=== PATIENT | female | born 1950 | race Caucasian/White ===

== ENCOUNTER 2016-06-04 05:18 | Observation (INO) | payer OTHER ==
[~2016-06-04] VITALS: Ht 157.5 cm; Wt 79.8 kg
[2016-06-04 05:55] VITALS: BP 152/79; PULSE 82; RESP 16; TEMP 98.4; O2SAT 100
[2016-06-04] MEDS ORDERED: HEPARIN SODIUM - SQ 10,000 UNITS/ML VIAL SQ SCH (06:15)
[2016-06-04] MEDS ORDERED: METOPROLOL TARTRATE 25 MG TAB PO PRN (06:15)
[2016-06-04] MEDS ORDERED: INSULIN HUMAN REGULAR 1,000 UNITS/10 ML VIAL SQ PRN (06:15)
[2016-06-04] MEDS ORDERED: ceFAZolin 1,000 MG/NS 100 ML IV SCH ×2 (06:15)
[2016-06-04] MEDS: LACTATED RINGER'S 1000 ML IV SCH ×2 (06:24→14:23)
[2016-06-04] MEDS ORDERED: LIDOCAINE 1%/EPINEPHrine 1:100,000 SOLN 30 ML VIAL ONE (06:50)
[2016-06-04] MEDS ORDERED: SUGAMMADEX SODIUM 200 MG/2 ML VIAL IV PUSH ONE ×2 (06:54)
[2016-06-04] MEDS ORDERED: ACETAMINOPHEN 1000 MG/100 ML VIAL IV ONE (06:54)
[2016-06-04] MEDS ORDERED: DEXAMETHASONE SOD PHOS 4 MG/ML VIAL ONE (07:14)
[2016-06-04] MEDS: SODIUM CHLORID 0.9% 500 ML IV SCH ×2 (07:30→23:59)
[2016-06-04] MEDS ORDERED: ARTIFICIAL TEARS OPTH OINT 3.5 APPLIC/3.5 GM TUBO ONE (07:38)
[2016-06-04] MEDS ORDERED: SILVER NITR/POTASSIUM NITRATE APPLICATORS TOPICAL ONE (10:24)
[2016-06-04] MEDS ORDERED: ceFAZolin INJ 1,000 MG VIAL IV ONE (10:25)
[2016-06-04] MEDS ORDERED: PHENYLEPH/NS 1000 MCG/10 ML SYR IV ONE (10:41)
[2016-06-04] MEDS ORDERED: PROPOFOL 200 MG/20 ML AMP IV ONE (10:41)
[2016-06-04] MEDS ORDERED: NORMOSOL R INJ 1,000 ML IV ONE (10:41)
[2016-06-04] MEDS ORDERED: ONDANSETRON HCL 4 MG/2 ML VIAL IV PUSH ONE (10:41)
[2016-06-04] MEDS ORDERED: LACTATED RINGER'S 1000 ML INJ 1,000 ML IV ONE (10:41)
[2016-06-04] MEDS: D5-1/2 NS + KCL 20 MEQ INJ 1,000 ML IV SCH ×2 (10:51→21:16)
[2016-06-04] MEDS ORDERED: diphenhydrAMINE HCL 25 MG CAP PO PRN (11:00)
[2016-06-04] MEDS ORDERED: SODIUM CHLORIDE 0.9% FLUSH 5 ML FLUSH FLUSH PRN (11:00)
[2016-06-04] MEDS ORDERED: oxyCODONE/ACETAMINOPHEN 5 MG/325 MG TAB PO PRN (11:00)
[2016-06-04] MEDS ORDERED: ONDANSETRON HCL 4 MG/2 ML VIAL IVP PRN (11:00)
[2016-06-04] MEDS: KETOROLAC TROMETHAMINE 30 MG/ML (IVP) VIAL IVP SCH ×3 (11:00→22:19)
[2016-06-04] MEDS ORDERED: LORazepam 0.5 MG TAB PO PRN (11:00)
[2016-06-04] MEDS ORDERED: MIDAZOLAM HCL 2 MG/2 ML VIAL ONE (11:06)
[2016-06-04] MEDS ORDERED: fentaNYL CITRATE 250 MCG/5 ML AMP ONE (11:06)
[2016-06-04] MEDS ORDERED: MORPHINE SULFATE 4 MG/ML INJ ONE (11:07)
[2016-06-04] MEDS ORDERED: DO NOT ADM ANY ANTICOAGULANT DRUGS XX PRN (11:30)
[2016-06-04] MEDS ORDERED: *MEPERIDINE 25 MG INJ VIAL PERIprocedural Use ONLY ONE (12:07)
--- NOTE | 2016-06-04 12:07 | MP ---
cc: KYM CRUZ KELLY L. MD DATE OF SURGERY 06/04/2016 PREOPERATIVE DIAGNOSES 1. Grade 2 endometrial adenocarcinoma. 2. Postmenopausal bleeding. POSTOPERATIVE DIAGNOSES 1. Grade 2 endometrial adenocarcinoma. 2. Postmenopausal bleeding. PROCEDURE Robotic-assisted laparoscopic hysterectomy, bilateral salpingo-oophorectomy, bilateral pelvic lymphadenectomy. SURGEON MD Jarvis BEHAVIOR INTERVENTIONIST [employer] operator assistant ANESTHESIA General endotracheal anesthesia. ESTIMATED BLOOD LOSS 100 cc. IV FLUIDS 2000 cc. URINE OUTPUT 500 cc. HISTORY A 66-year-old female with postmenopausal bleeding of approximately 7 to 8 weeks duration, sought evaluation, found on imaging to have a thickening in the central uterus. A biopsy was performed which showed a grade 2 endometrial adenocarcinoma. She was counseled regarding treatment options and presents now for surgical evaluation and management. FINDINGS The uterus sounded to 9 cm, was retroverted. It was symmetrically prominent. The tubes and ovaries grossly appeared normal. There was no overtly enlarged pelvic or paraaortic lymph nodes. In the peritoneal cavity there were some subtle adhesions in the right lower quadrant with the descending colon against the left pelvic sidewall, filmy in nature nodes. Otherwise there were no significant adhesions. The liver diaphragm edges were smooth. The omentum grossly appeared normal. Large and small bowel and adjacent mesentery appeared normal. The uterus once removed was evaluated. The tumor arose from the endometrium, was approximately 4 cm in diameter. It did grow into the wall of the uterus at or beyond 50% depth of the myometrium. There was no overt endocervical extension. PROCEDURE The patient was taken to the operating roomm, placed in dorsal lithotomy position. After general endotracheal anesthesia was administered, time-out was undertaken. The patient was identified by sight recognition and hospital ID bracelet and the proposed procedure was reviewed and confirmed. We carefully positioned her in padded Nicholas stirrups. Her arms were padded and secured to the sides. She was further secured to the operating table with eggcrate padding and tape in across chest, over the shoulder fashion. All sites noted to be properly aligned with no malalignments or pressure points. She was prepped in sterile fashion, draped below the waist, placed in high lithotomy position. The cervix was grasped, the uterine cavity sounded, the cervix dilated and a standard V-Care manipulator inserted and secured in the usual fashion. Edmond catheter was placed in the bladder. She was returned to low lithotomy position. Change of sterile gloves was undertaken. We completed draping in anticipation of laparoscopy and confirmed that there was an orogastric airway in the stomach on suction. With manual elevation of the abdominal wall and direct laparoscopic visualization, a 5-mm cannula was placed in the left upper abdomen and an atraumatic entry was confirmed. Carbon dioxide gas was insufflated. Now a 12-mm cannula was placed in midline above the umbilicus, an 8-mm cannula was placed in the right upper quadrant in the left lateral abdomen. The original 5 was exchanged for an 8-mm cannula. She was placed in steep Trendelenburg position. Peritoneal washings were obtained for cytology. The anatomy was explored with the findings as described above. The bowel was folded back on its mesenteric root and three Ray-Apple sponges were placed around the root of the small bowel mesentery. Robotic system was brought into the operative field, attached in the usual fashion. Monopolar scissors, fenestrated bipolar forceps and ProGrasp manipulators were placed in arms #1, 2 and 3 respectively and I took my place at the surgeon's console. The right round ligament was isolated, cauterized, transected. The anterior and posterior leaves of the broad ligament were opened. The right ureter was identified. The right infundibulopelvic ligament was isolated to the level of the pelvic brim. The intervening peritoneum was opened. The infundibulopelvic ligament was cauterized and transected. The posterior peritoneum was opened along the right side of the uterus and cervix and the right vesicouterine peritoneum was dissected off the lower uterine segment and cervix. The right uterine vessels were skeletonized, cauterized and transected as were the cardinal, paracervical and uterosacral ligament. Attention was directed toward the left side. Adhesions were taken down to mobilize the colon to gain access to the left pelvic sidewall. The left round ligament was isolated, cauterized and transected. The anterior and posterior leaves of the broad ligament were opened. The left ureter was identified. The left infundibulopelvic ligament was isolated. The intervening peritoneum was opened. The infundibulopelvic ligament was cauterized and transected. The posterior peritoneum was opened along the left side of the uterus and cervix and the vesicouterine peritoneum was dissected off the left side, completing establishment of the bladder flap. The left uterine vessels were skeletonized, cauterized and transected as were the cardinal, paracervical and uterosacral ligaments. A circumferential colpotomy was performed the cervix from the upper vagina and the specimen was withdrawn transvaginally which included uterus, cervix, tubes and ovaries and a pneumooccluder balloon was placed in the vagina to maintain pneumoperitoneum. Instruments 1 and 3 were exchanged for needle drivers as a 0 Vicryl suture was introduced. The vaginal cuff was closed starting at the left corner, full-thickness tissue closure including the posterior peritoneum and the edge of the uterosacral ligament, tied via instrument tie. The closure was held on counter traction as a running continuous full-thickness closure was carried across the vaginal apex to the contralateral corner where it was similarly fixed, secured tied via instrument tie. The needle was cut and removed. The pelvis was thoroughly irrigated. There was a good margin between the bladder edge and the vaginal cuff suture line. Sites were hemostatic. Pathology came back preliminary evaluation of the uterus showing a large tumor, deep myometrial invasion in conjunction with a preop biopsy showing a grade 2 tumor and, as per our preop discussion with Leisa Gonzales, we agreed to consider at least resecting the vega pelvic lymph nodes if there were multiple risk factors that potentially increased the chance of microscopic metastatic disease beyond the uterus and further dissection would be limited unless there was something obviously abnormal. This was discussed again in the preop holding area today and she agreed with this plan, understood the ramifications of that incision. Because of the risk factors, attention was directed toward the right pelvic lymph nodes where the pararectal, paravesical and obturator spaces were developed. Lymphatic tissue was removed starting at the bifurcation of the iliac vessels on the right, continued distally along the psoas muscle and external iliac artery with care taken to isolate and spare the genitofemoral nerve. Dissection was carried distally to the circumflex iliac vein and the medial border of dissection was the superior vesical artery. The lymphatic tissue was taken down to the obturator nerve and lymphatic tissue ventral to the obturator nerve was removed and this en bloc specimen was placed in the right pelvis for later retrieval. Attention was directed toward the left side where similarly the paravesical, pararectal and obturator spaces were opened. Lymphatic tissue was removed using bipolar cautery and sharp dissection, care taken to spare the genitofemoral nerve, dissect from the bifurcation of the iliacs distally to the circumflex iliac vein, medially to the superior vesical artery, dissecting into the obturator space and removing lymphatics ventral to the obturator nerve and the en bloc specimen was placed in the left pelvis for later retrieval. The pelvis was thoroughly irrigated. Small bleeders were rendered hemostatic with bipolar cautery to assist in continued hemostasis. Hemostatic Tabitha powder was placed in the lymph node dissection beds and across the vaginal cuff. The paraaortic region was inspected. The peritoneal surfaces were again inspected. There were no visible or palpably enlarged lymph nodes in that region. In keeping with our preoperative discussion and our agreement, it was felt that further dissection may be associated with morbidity that exceeded benefit. It was felt that all reasonable surgical objectives had been completed in this individual. The robotic instruments were removed and the robotic system was disengaged from the operative field. I reentered the bedside under sterile condition. The 12-mm cannula was used to retrieve the three Ray-Apple sponges that were in the peritoneal cavity. They were each removed separately and then inspected and noted to be removed in their entirety. The 12-mm cannula was then used to introduce an EndoCatch bag to capture first the right pelvic lymph nodes and then the left pelvic lymph nodes. Inspection confirmed there were no remaining foreign objects in the peritoneal cavity and preliminary counts were correct. The 12-mm fascial defect was closed with 0 Vicryl sutures in an interrupted fashion using a needle fascial closure apparatus. They were tied securely which rendered the fascia completely airtight and hemostatic. The remaining cannulas were withdrawn. Carbon dioxide gas was removed from the peritoneal cavity. 3-0 Vicryl subcutaneous, 3-0 Vicryl subcuticular and Steri-Strips used to close these incisions. She was returned to dorsal lithotomy position. Pelvic exam confirmed the vaginal cuff was well supported, hemostatic. There are no vaginal lacerations. There was, however, some superficial mucosal irritation near the introitus rendered hemostatic with topical coagulant. There were no remaining foreign objects in the vagina. Final counts were correct. She was returned to dorsal supine position pending reversal of anesthesia when I left the operating room to precede her to the Post-Anesthesia Care Unit and speak to a family member who was waiting in the family surgical waiting area. MD PARVIZ Fowler /11:21 AM /11:40 AM
[2016-06-04 14:12] VITALS: BP 140/74; PULSE 88; RESP 18; TEMP 97.2; O2SAT 99
--- NOTE | 2016-06-04 15:14 | PD.ONC.PN ---
Subjective Subjective Remarks Post op note: Pt only c/o left eye irritation/scratch. I explained that this happens sometimes and I will have RN put patch on eye and get her some gtts...usually by morning the symptom is resolved. she denies any N/V or pain still sleepy Objective Data Date Time Temp Pulse Resp B/P Pulse Ox O2 Delivery O2 Flow Rate FiO2 06/04/16 13:50 89 16 151/82 99 Nasal Cannula 2 06/04/16 13:00 97.7 73 15 122/68 99 Nasal Cannula 2 06/04/16 12:30 62 12 119/68 99 Nasal Cannula 2 06/04/16 12:00 97.0 75 12 136/75 98 Nasal Cannula 2 06/04/16 12:00 12 06/04/16 11:45 77 12 139/80 98 Nasal Cannula 2 06/04/16 11:30 82 12 142/77 98 Nasal Cannula 2 06/04/16 11:15 90 12 146/77 97 Nasal Cannula 2 06/04/16 10:59 97.4 102 12 151/81 97 Nasal Cannula 2 06/04/16 05:55 98.4 82 16 152/79 100 06/04/16 06/04/16 06/04/16 07:00 15:00 23:00 Intake Total 2300 ml Output Total 800 ml Balance 1500 ml Laboratory Results Laboratory Tests Test 06/04/16 05:46 Blood Type O POSITIVE Antibody Screen NEGATIVE Blood Bank Comment Administered Medications Medications (Trade) Dose Ordered Sig/Sangita Route PRN Reason Start Time Stop Time Status Last Admin Dose Admin Lactated Ringer's 1,000 ml @ 30 mls/hr Q24H IV 06/04/16 07:30 06/04/16 06:24 Potassium Chloride/Dextrose/ Sod Cl (D5-1/2 NS + KCl 20 Meq Inj) 1,000 ml @ 100 mls/hr Q10H IV 06/04/16 10:51 06/04/16 10:51 Ketorolac Tromethamine (Toradol Inj) 15 mg Q6H IVP 06/04/16 11:00 06/05/16 05:01 06/04/16 11:00 Objective Remarks GENERAL: Well-nourished, well-developed patient. sleepy SKIN: Warm and dry. HEAD: Normocephalic. EYES:mild erythema to left conjunctiva CARDIOVASCULAR: Regular rate and rhythm without murmurs. RESPIRATORY: Breath sounds equal bilaterally. No accessory muscle use. GASTROINTESTINAL: SS are c/d/i, EXTREMITIES: teds and scds MUSCULOSKELETAL: Adequate muscle tone. NEUROLOGICAL: No obvious focal deficit. Assessment/Plan Problem List: (1) Postoperative state Status: Acute Plan: post op orders ADAT d/c bloom in am encourage IS (at bedside) pain meds per EMR anticipate d/c in am patch to left eye artificial tears prn..discussed with RN (2) Endometrial cancer Status: Acute Plan: s/p RA priscila castro with BSO Lisa Healy Jun 04, 2016 15:14
[2016-06-04] MEDS: oxyCODONE/ACETAMINOPHEN 5 MG/325 MG TAB PO PRN (15:19)
[2016-06-04] MEDS: ARTIFICIAL TEARS OPTH SOLN 15 ML BTL LEFT EYE PRN ×2 (17:19→22:23)
[2016-06-04 20:00] VITALS: BP 162/69; PULSE 79; RESP 18; TEMP 98.4; O2SAT 96
[2016-06-04] MEDS: SODIUM CHLORIDE 0.9% FLUSH 5 ML FLUSH FLUSH SCH (22:19)
[2016-06-05] VITALS: BP 127/61; PULSE 82; RESP 17; TEMP 98.9; O2SAT 98
[2016-06-05 04:00] VITALS: BP 126/69; PULSE 73; RESP 17; TEMP 97.8; O2SAT 97
[2016-06-05] MEDS: KETOROLAC TROMETHAMINE 30 MG/ML (IVP) VIAL IVP SCH (05:30)
[2016-06-05] MEDS: D5-1/2 NS + KCL 20 MEQ INJ 1,000 ML IV SCH ×2 (05:48→07:17)
[2016-06-05 06:34] LABS: AUTOMATED NEUTROPHIL # 9.4 TH/MM3 (1.8-7.7); BASOPHIL # 0.1 TH/MM3 (0-0.2); BASOPHIL % 0.6 % (0.0-2.0); EOSINOPHIL % 0.2 % (0.0-4.0); HEMATOCRIT 37.4 % (35.0-46.0); HEMO FLAGS DIFF FINAL; LYMPH % 13.5 % (9.0-44.0); LYMPHOCYTE # 1.7 TH/MM3 (1.0-4.8); MEAN CELL VOLUME 88.1 FL (80.0-100.0); MEAN CORPUSCULAR HEMOGLOBIN 30.6 PG (27.0-34.0); MEAN CORPUSCULAR HGB CONC 34.7 % (32.0-36.0); MONO % 11.9 % (0.0-8.0); NEUT % 73.8 % (16.0-70.0); PLATELET COUNT 213 TH/MM3 (150-450); RED BLOOD COUNT 4.24 MIL/MM3 (4.00-5.30); RED CELL DISTRIBUTION WIDTH 12.9 % (11.6-17.2); WHITE BLOOD COUNT 12.7 TH/MM3 (4.0-11.0)
[2016-06-05 06:57] LABS: BICARBONATE 25.4 MEQ/L (21.0-32.0); POTASSIUM 3.8 MEQ/L (3.5-5.1)
[2016-06-05] MEDS: SODIUM CHLORIDE 0.9% FLUSH 5 ML FLUSH FLUSH SCH (07:17)
[2016-06-05 07:57] VITALS: BP 139/70; PULSE 76; RESP 20; TEMP 97.5; O2SAT 96
[2016-06-05] MEDS ORDERED: OXYC1TAB63 PO (07:57)
[2016-06-05] MEDS: oxyCODONE/ACETAMINOPHEN 5 MG/325 MG TAB PO PRN (09:55)
--- NOTE | 2016-06-10 17:07 | MD ---
cc: KYM CRUZ,KATHY Hahn MD ADMISSION DATE: 06/04/2016 DISCHARGE DATE: 06/05/2016 PROCEDURES PERFORMED: 06/04/2016: robotic-assisted laparoscopic hysterectomy, bilateral salpingo-oophorectomy, bilateral pelvic lymphadenectomy. DIAGNOSIS: Endometrial cancer. HOSPITAL COURSE: She did well during the early postoperative period. OBJECTIVE: In's and out's [id number]. Labs: Hemoglobin and hematocrit were 13 and 37.4. BUN and creatinine 7 and 0.9, potassium normal at 3.8. PHYSICAL EXAMINATION: VITAL SIGNS: Afebrile, pulse 73-82, respirations 16-20, blood pressure 127-162 /61-70, O2 saturations greater than equal to 96%. GENERAL: Alert, oriented x3 in no acute distress. LUNGS: Clear except for mild rales at the bases. CARDIOVASCULAR: Regular rate and rhythm. ABDOMEN: Soft. Incisions clean and dry. FOOD ORDER DELIVERY RUNNER: No bleeding. EXTREMITIES: Nontender. SCDs intact. ASSESSMENT: Postop day #1 findings: Preliminary extent of tumor in the uterus and rationale for pelvic lymph node dissection discussed and reviewed. Postoperative activities and restrictions reviewed. Questions were answered. She expressed good understanding and agrees. PLAN: Anticipate she will meet criteria for discharge to home as she is tolerating oral intake. Edmond catheter has been removed. She is not yet voiding. She has adequate pain control. She is hemodynamically stable. She takes no prescription medications at home. A prescription will be provided for Percocet for pain as needed. Our office number was made available and she is asked to call our office to make sure she has an appointment scheduled within two weeks or to call us at any time should there be questions or problems. MD CHRISTOPHER Fowler/REJI /8:01 AM /5:02 PM
== END 2016-06-05 11:46 | disposition home or self-care (01) ==
LOC: HSDC 05:18 → HSDI 10:52 → HOCA 14:08
PROVIDERS: ADMIT Obstetrics & Gynecology Gynecologic Oncology; ATTEND Obstetrics & Gynecology Gynecologic Oncology
DX: C54.1 Malignant neoplasm of endometrium (principal); N73.6 Female pelvic peritoneal adhesions (postinfective); N95.0 Postmenopausal bleeding
CPT/HCPCS: 00840; 38571; 58552; 80048; 85025; 86850; 86900; 86901; 88307; 88309; 88331; 94150; G0378; J0131; J0690; J1100; J1644; J1885; J2175; J2250; J2270; J2370; J2405; J3010; J3480; J7120; 88305